=== PATIENT | female | born 1955 | race Caucasian/White ===

== ENCOUNTER 2020-07-06 23:07 | Inpatient (IN) | payer OTHER ==
[2020-07-06] MEDS ORDERED: ALBUTEROL NEBULIZED 2.5 MG/3 ML INHALATION PRN (23:20)
[2020-07-06] MEDS ORDERED: ACETAMINOPHEN TAB 500 MG TAB PO STA (23:20)
[2020-07-06] MEDS ORDERED: ACETAMINOPHEN TAB 325 MG TAB PO PRN (23:20)
[2020-07-06] MEDS ORDERED: PNEUMONIA PROTOCOL UTILIZED 1 EACH MISC PO PRN (23:20)
--- NOTE | 2020-07-06 23:27 | ED ---
Recheck HPI - General Stated Complaint: Fever Time Seen by Provider: 07/06/20 23:09 Source: RN notes reviewed, old records reviewed - History of Present Illness Initial Comments: this is a 64-year-old female DF for evaluation patient accepted in transfer for not feeling well 10 days of known coronavirus. Patient transferred to facility for this increasing shortness of breath and signs and symptoms of shortness of breath. No pain, persistent fevers. Patient does feel weak and does have some generalized body aches MD Complaint: other (known history of coronavirus) -: days(s) (10) Returns Today for: Called Because of Abnormal Lab/Test, persistent/worsening pain related to initial visit, other (increasing shortness of breath) Symptoms Since Prior Visit: fever Associated Symptoms: fever, chills, shortness of breath - Related Data Allergies Allergy/AdvReac Type Severity Reaction Status Date / Time Sulfa (Sulfonamide Allergy Rash/Hives Verified 07/06/20 23:37 Antibiotics) Review of Systems ROS Statement: Those systems with pertinent positive or pertinent negative responses have been documented in the HPI. ROS Other: All systems not noted in ROS Statement are negative. General Exam General appearance: alert, in no apparent distress Head exam: Present: atraumatic, normocephalic, normal inspection Eye exam: Present: normal appearance, PERRL, EOMI. Absent: scleral icterus, conjunctival injection, periorbital swelling ENT exam: Present: normal exam, mucous membranes dry Neck exam: Present: normal inspection. Absent: tenderness, meningismus, lymphadenopathy Respiratory exam: Present: normal lung sounds bilaterally, respiratory distress, accessory muscle use, decreased breath sounds, prolonged expiratory. Absent: wheezes, rales, rhonchi, stridor Cardiovascular Exam: Present: normal rhythm, tachycardia, normal heart sounds. Absent: systolic murmur, diastolic murmur, rubs, gallop, clicks GI/Abdominal exam: Present: soft, normal bowel sounds. Absent: distended, tenderness, guarding, rebound, rigid Extremities exam: Present: normal inspection, full ROM, normal capillary refill. Absent: tenderness, pedal edema, joint swelling, calf tenderness Back exam: Present: normal inspection Neurological exam: Present: alert, oriented X3, CN II-XII intact Psychiatric exam: Present: normal affect, normal mood Skin exam: Present: warm, dry, intact, normal color. Absent: rash Course Vital Signs 07/06/20 07/07/20 23:23 00:23 Temperature 101.6 F H 100.9 F H Pulse Rate 102 H 94 Respiratory 18 18 Rate Blood Pressure 125/71 O2 Sat by Pulse 94 L 94 L Oximetry - Reevaluation(s) Reevaluation #1: medical record is reviewed Spoke with transferring physician Transferring paperwork has been reviewed Medical Decision Making - Medical Decision Making 64 female presented with known positive coronavirus. Patient feels mildly short of breath but is no change complaints of chest pain or other issues she is still febrile improving. Patient be admitted for continued hemodynamic support - EKG Data -: EKG Interpreted by Me (EKG is sinus rhythm 97 MA 172 QRS 80 QTC 434) Disposition Clinical Impression: Fever, COVID-19 Disposition: ADMITTED IP TO THIS HOSP Condition: Fair Is patient prescribed a controlled substance at d/c from ED?: No
[2020-07-06] MEDS: SODIUM CHLORIDE 0.9% 1,000 ML IV SCH (23:57)
[2020-07-07 11:08] LABS: Basophils % (A) 0 %; Eosinophils % (A) 0 %; HCT 37.1 % (34.0-46.0); HGB 12.1 gm/dL (11.4-16.0); Lymphocytes % (A) 10 %; MCH 31.2 pg (25.0-35.0); MCHC 32.6 g/dL (31.0-37.0); MCV 95.6 fL (80.0-100.0); Mean Platelet Volume 7.8; Monocytes # (A) 0.3 k/uL (0-1.0); Monocytes % (A) 3 %; Neutrophils # (A) 8.4 k/uL (1.3-7.7); Neutrophils % (A) 86 %; Platelet Count 232 k/uL (150-450); RBC 3.88 m/uL (3.80-5.40); RDW 13.1 % (11.5-15.5); WBC 9.8 k/uL (3.8-10.6)
[2020-07-07] MEDS: ENOXAPARIN 60 MG/0.6 ML SYRINGE SQ SCH ×2 (11:31→20:44)
[2020-07-07] MEDS: FAMOTIDINE 20 MG TAB PO SCH ×2 (11:31→19:57)
[2020-07-07] MEDS: ZINC SULFATE 220 MG CAP PO SCH (11:32)
[2020-07-07 11:33] LABS: ALT 55 U/L (4-34); AST 56 U/L (14-36); African American GFR (CKD) >90 (>60 ml/min/1.73 sqM); Albumin 3.3 g/dL (3.5-5.0); Albumin/Globulin Ratio 1.2; Alkaline Phosphatase 68 U/L (38-126); Anion Gap 5 mmol/L; Blood Urea Nitrogen 10 mg/dL (7-17); Calcium 8.5 mg/dL (8.4-10.2); Carbon Dioxide 27 mmol/L (22-30); Chloride 103 mmol/L (98-107); Globulin 2.8 g/dL; Glucose 103 mg/dL (74-99); Non-African American GFR(CKD) >90 (>60 ml/min/1.73 sqM); Potassium 3.9 mmol/L (3.5-5.1); Sodium 135 mmol/L (137-145); Total Bilirubin 0.4 mg/dL (0.2-1.3); Total Protein 6.1 g/dL (6.3-8.2)
[2020-07-07] MEDS: SODIUM CHLORIDE 0.9% 1,000 ML IV SCH ×3 (11:35→23:52)
[2020-07-07 11:37] LABS: Glucose,Whole Blood 115 mg/dL (75-99)
[2020-07-07] MEDS: methylPREDNISolone SOD SUCCI 40 MG/ML 1 ML VIAL IV SCH ×3 (11:38→23:52)
[2020-07-07 11:52] LABS: C Reactive Protein 184.1 mg/L (<10.0)
[2020-07-07] MEDS: INSULIN ASPART (NovoLOG) 100 UNIT/ML VIAL SQ SCH ×2 (14:14→18:51)
[2020-07-07] MEDS: ESCITALOPRAM 10 MG TAB PO SCH (15:13)
[2020-07-07] MEDS: ASCORBIC ACID 500 MG TAB PO SCH (15:13)
[2020-07-07] MEDS: METOPROLOL TARTRATE 25 MG TAB PO SCH ×2 (15:13→19:57)
[2020-07-07 16:54] LABS: Glucose,Whole Blood 149 mg/dL (75-99)
[2020-07-07 21:09] LABS: Glucose,Whole Blood 182 mg/dL (75-99)
[2020-07-07] MEDS ORDERED: ALBUTEROL HFA INHALER INHALATION PRN (21:25)
--- NOTE | 2020-07-07 21:53 | P.HPIM ---
History of Present Illness H&P Date: 07/07/20 Chief Complaint: Cough History of presenting complaint: This is a pleasant 64-year-old patient of Dr. Poe. Chronic stable medical conditions include GERD, hypertension, anxiety. Patient's had a slight cough and shortness of breath progressive for last 10 days. Started off with chills and fever. No obvious headache. Smell and taste preserved. She'll also had some loose stools. Decreased appetite. Getting weak diet and rundown. 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 Review of systems: GEN.: Fever and chills EYES: None HEENT: None NECK: None RESPIRATORY: As above CARDIOVASCULAR: None GASTROINTESTINAL: As above GENITOURINARY: None MUSCULOSKELETAL: Muscle achiness LYMPHATICS: None HEMATOLOGICAL: None PSYCHIATRY: None NEUROLOGICAL: None Past medical history to include: GERD, hypertension, pancreatitis, anxiety Social history: Lives alone. No smoking or alcohol. Runs a daycare. Family history: Reviewed, noncontributory to presentation Physical examination: VITAL SIGNS: 101.6, 102, 18, 125/71, 94% on 3 L GENERAL: BMI 25.9, laying in bed, tired. EYES: Pupils equal. Conjunctiva normal. HEENT: External appearance of nose and ears normal, oral cavity grossly normal. NECK: JVD not raised; masses not palpable. HEART: First and second heart sounds are normal; no edema. LUNGS: Respiratory rate increased, decreased breath sounds some crackles. ABDOMEN: Soft, nontender, liver spleen not palpable, no masses palpable. PSYCH: [Alert and oriented x3; mood and affect anxious l. NEUROLOGICAL: Cranial nerves grossly intact; no facial asymmetry, power and sensation grossly intact. LYMPHATICS: No lymph nodes palpable in the axilla and neck INVESTIGATIONS, reviewed in the clinical context: White count 9.8 increased neutrophils potassium 3.9 creatinine 0.56, d-dimer 0.5 on CRP 184 EKG tracing personally reviewed by me-no sinus rhythm Assessment: -COVID 19 pneumonia -Acute hypoxic respiratory failure from pneumonia -GERD -Essential hypertension -Anxiety depression otherwise specified Plan: Patient be put on therapeutic dose of Lovenox, IV Solu-Medrol, zinc, Pepcid. Home medications resumed. Care was discussed with the patient question also. Also had Ventolin 2 puffs every 6. COVID 19 precautions. Past Medical History Past Medical History: GERD/Reflux, Hypertension Additional Past Medical History / Comment(s): pancreatitis History of Any Multi-Drug Resistant Organisms: None Reported Past Surgical History: Cholecystectomy Past Anesthesia/Blood Transfusion Reactions: No Reported Reaction Past Psychological History: Anxiety Smoking Status: Never smoker Past Alcohol Use History: None Reported Past Drug Use History: None Reported Medications and Allergies Home Medications Medication Instructions Recorded Confirmed Type Acetaminophen Tab [Tylenol Tab] 1,000 mg PO Q6HR PRN 07/07/20 07/07/20 History Ascorbic Acid [Vitamin C] 500 mg PO DAILY 07/07/20 07/07/20 History Cephalexin [Keflex] 500 mg PO TID 07/07/20 07/07/20 History Escitalopram [Lexapro] 10 mg PO DAILY 07/07/20 07/07/20 History Metoprolol Tartrate [Lopressor] 25 mg PO BID 07/07/20 07/07/20 History NIFEdipine [Procardia XL] 60 mg PO BID 07/07/20 07/07/20 History Potassium Chloride ER [K-Dur 10] 20 meq PO BID 07/07/20 07/07/20 History Vitamin B Complex 1 cap PO DAILY 07/07/20 07/07/20 History hydroCHLOROthiazide [Hydrodiuril] 12.5 mg PO DAILY 07/07/20 07/07/20 History Allergies Allergy/AdvReac Type Severity Reaction Status Date / Time Sulfa (Sulfonamide Allergy Rash/Hives Verified 07/07/20 07:49 Antibiotics) Physical Exam Vitals: Vital Signs Temp Pulse Pulse Resp BP BP Pulse Ox 07/07/20 07:00 97.6 F 101 H 20 135/75 91 L 07/07/20 01:08 98.4 F 89 18 111/65 95 07/07/20 01:02 18 07/07/20 00:23 100.9 F H 94 18 94 L 07/06/20 23:23 101.6 F H 102 H 18 125/71 94 L Intake and Output 07/06/20 07/07/20 07/07/20 22:59 06:59 14:59 Other: Voiding Method Toilet # Voids 1 Weight 66.224 kg Results CBC & Chem 7: 07/07/20 10:43 07/07/20 10:43 Thrombosis Risk Factor Assmnt - Choose All That Apply Any of the Below Risk Factors Present?: No Other Risk Factors: No Thrombosis Risk Factor Assessment Level: Very Low Risk
--- NOTE | 2020-07-07 22:33 | XR ---
EXAMINATION TYPE: XR chest 1V portable DATE OF EXAM: 07/07/2020 COMPARISON: 07/06/2020 HISTORY: Respiratory distress TECHNIQUE: FINDINGS: There is some coarse interstitial density in the lungs. This is seen mainly in the peripher y of both lung prado. Heart size is normal. There is no heart failure. There are no hilar masses. Th ere is no evidence of pleural effusion. Bony thorax is intact. IMPRESSION: Interstitial peripheral pulmonary infiltrates increased compared to exam yesterday. This is probably some acute and chronic interstitial pneumonia... No heart failure seen.
[2020-07-08] MEDS: ALBUTEROL HFA INHALER INHALATION SCH ×5 (00:57→20:55)
--- NOTE | 2020-07-08 01:35 | CONS ---
CONSULTATION DATE OF SERVICE: 07/07/2020 REASON FOR CONSULTATION: COVID-19 infection. HISTORY OF PRESENT ILLNESS: The patient is a 64-year-old female who started to have symptoms of fever, chills, some shortness of breath and cough about 10 days ago where the patient has been managing at home and the patient seemed to have some improvement initially. However, yesterday the patient starting having increasing shortness of breath, unable to take deep breath. Patient denies significant cough or sputum production. No nausea, no vomiting. No abdominal pain or diarrhea. The patient was evaluated at [facility] and subsequently has been transferred to this facility with concern for acute COVID-19 infection. On presentation to this hospital, the patient did have a fever of 101.6 degrees Fahrenheit. The patient was not tachycardic. The patient is currently 92% to 94% on 2 L nasal cannula. The patient did have a normal white count and no lymphopenia. She did have elevated liver enzymes as well as CRP. No chest x-ray done at this facility. The patient was started on Lovenox, Solu-Medrol and zinc. Infectious Disease was consulted for further management. The patient did mention she is feeling slightly better since has been transferred here and has been started on oxygen. REVIEW OF SYSTEMS: Positive points have been mentioned in HPI. Rest of systems negative. PAST MEDICAL HISTORY: Her past medical history significant for hypertension and gastroesophageal reflux disease. PAST SURGICAL HISTORY: Cholecystectomy. SOCIAL HISTORY: The patient denies smoking, drinking or drug use. PAST PSYCHOLOGICAL HISTORY: Positive for anxiety. FAMILY HISTORY: No pertinent findings noticed. ALLERGIES: Allergies to SULFA. MEDICATIONS: Medications include the patient is currently on Tylenol, Ventolin, vitamin C, Lovenox, Lexapro, Pepcid, NovoLog, Solu-Medrol, Lopressor, and fluid and zinc. PHYSICAL EXAMINATION: Blood pressure 114/70 with a pulse of 77, temperature 98.4. She is 91% on 2 L nasal cannula. General description is a middle-aged female up in the bed in no distress. RESPIRATORY SYSTEM: Unlabored breathing, clear to auscultation anteriorly. No wheeze or crackle. HEART: S1, S2. Regular rate and rhythm. ABDOMEN: Soft, no tenderness. EXTREMITIES: No edema of the feet. SKIN EXAMINATION: No rash or mass palpable. NEUROLOGICAL: Patient is awake, alert, oriented x3. Mood and affect normal. LABS: Hemoglobin is 12.1, white count 9.8, neutrophil count 8.4, BUN of 10, creatinine 0.56. Liver enzymes mildly elevated. CRP is 184. DIAGNOSTIC IMPRESSION: Patient admitted to the hospital with increasing shortness of breath in this patient who did have symptoms suggestive of COVID-19 infection. Apparently, she was tested positive in an outside facility with worsening symptoms for the last 24 hours. PLAN: 1. Patient is currently covered with Solu-Medrol, zinc, Lovenox, to continue. 2. We will repeat inflammatory markers and chest x-ray. 3. Droplet isolation and respiratory support. 4. Depending on her response in the next 24 hours, we may need to start the patient on remdesivir. MMODL / IJN: [id number] /
[2020-07-08 08:06] LABS: Glucose,Whole Blood 152 mg/dL (75-99)
[2020-07-08 08:10] LABS: Basophils % (A) 0 %; Eosinophils % (A) 0 %; HCT 35.7 % (34.0-46.0); HGB 11.6 gm/dL (11.4-16.0); Lymphocytes # (A) 1.2 k/uL (1.0-4.8); Lymphocytes % (A) 10 %; MCH 31.9 pg (25.0-35.0); MCHC 32.6 g/dL (31.0-37.0); Mean Platelet Volume 7.8; Monocytes # (A) 0.4 k/uL (0-1.0); Monocytes % (A) 3 %; Neutrophils # (A) 9.8 k/uL (1.3-7.7); Neutrophils % (A) 84 %; Platelet Count 273 k/uL (150-450); RBC 3.65 m/uL (3.80-5.40); RDW 12.9 % (11.5-15.5); WBC 11.6 k/uL (3.8-10.6)
[2020-07-08] MEDS: methylPREDNISolone SOD SUCCI 40 MG/ML 1 ML VIAL IV SCH ×2 (08:26→16:50)
[2020-07-08] MEDS: FAMOTIDINE 20 MG TAB PO SCH ×2 (08:27→20:53)
[2020-07-08] MEDS: ASCORBIC ACID 500 MG TAB PO SCH (08:27)
[2020-07-08] MEDS: ZINC SULFATE 220 MG CAP PO SCH (08:27)
[2020-07-08] MEDS: METOPROLOL TARTRATE 25 MG TAB PO SCH ×2 (08:27→20:53)
[2020-07-08] MEDS: ESCITALOPRAM 10 MG TAB PO SCH (08:27)
[2020-07-08] MEDS: INSULIN ASPART (NovoLOG) 100 UNIT/ML VIAL SQ SCH ×3 (08:28→17:21)
[2020-07-08 10:50] LABS: African American GFR (CKD) 111.6 (60.0-200.0); Albumin 3.5 g/dL (3.80-4.90); Albumin/Globulin Ratio 1.59 (1.60-3.17); Anion Gap 10.7 mmol/L (4.00-12.00); BUN/Creat Ratio 28.33 Ratio (12.00-20.00); C Reactive Protein 14.2 mg/dL (0.0-0.8); Calcium 8.5 mg/dL (8.7-10.3); Carbon Dioxide 21.3 mmol/L (21.6-31.8); Globulin 2.2 g/dL (1.6-3.3); Non-African American GFR(CKD) 96.3 (60.0-200.0); Potassium 3.9 mmol/L (3.5-5.5); Total Bilirubin 0.2 mg/dL (0.3-1.2); Total Protein 5.7 g/dL (6.2-8.2)
[2020-07-08] MEDS: ENOXAPARIN 60 MG/0.6 ML SYRINGE SQ SCH ×2 (10:56→20:53)
[2020-07-08 11:06] LABS: Glucose,Whole Blood 167 mg/dL (75-99)
[2020-07-08] MEDS ORDERED: REMDESIVIR (EUA) 200 MG in SODIUM CHLORIDE 0.9% 250 ML IVPB ONE (12:00)
[2020-07-08 16:25] LABS: Glucose,Whole Blood 183 mg/dL (75-99)
[2020-07-08] MEDS: SODIUM CHLORIDE 0.9% 1,000 ML IV SCH ×2 (16:49→21:14)
--- NOTE | 2020-07-08 20:33 | P.PN ---
Progress Note - Text Progress Note Date: 07/08/20 Chief Complaint: Cough History of presenting complaint: This is a pleasant 64-year-old patient of Dr. Poe. Chronic stable medical conditions include GERD, hypertension, anxiety. Patient's had a slight cough and shortness of breath progressive for last 10 days. Started off with chills and fever. No obvious headache. Smell and taste preserved. She'll also had some loose stools. Decreased appetite. Getting weak diet and rundown. 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 Admitted with COVID 19 pneumonia, acute hypoxic respiratory failure. Started on Lovenox, Solu-Medrol, Remdesivir oxygen supplementation. Today-laying in bed. Feeling slightly better. Slight cough. Bowels better. Oral intake about 75% of the meals. Review of systems: Was done for constitutional, cardiovascular, GI, pulmonary. relevant finding as above Active Medications Acetaminophen (Acetaminophen Tab 325 Mg Tab) 650 mg PO Q4HR PRN PRN Reason: Fever>101 Last Admin: 07/07/20 11:31 Dose: 650 mg Documented by: Albuterol Sulfate (Albuterol Hfa Inhaler) 2 puff INHALATION RT-QID [facility] Last Admin: 07/08/20 16:51 Dose: 2 puff Documented by: Ascorbic Acid (Ascorbic Acid 500 Mg Tab) 500 mg PO DAILY [facility] Last Admin: 07/08/20 08:27 Dose: 500 mg Documented by: Enoxaparin Sodium (Enoxaparin 60 Mg/0.6 Ml Syringe) 60 mg SQ Q12HR [facility] Last Admin: 07/08/20 10:56 Dose: 60 mg Documented by: Escitalopram Oxalate (Escitalopram 10 Mg Tab) 10 mg PO DAILY [facility] Last Admin: 07/08/20 08:27 Dose: 10 mg Documented by: Famotidine (Famotidine 20 Mg Tab) 20 mg PO BID [facility] Last Admin: 07/08/20 08:27 Dose: 20 mg Documented by: Sodium Chloride (Saline 0.9%) 1,000 mls @ 100 mls/hr IV .Q10H [facility] Last Admin: 07/08/20 16:49 Dose: Not Given Documented by: Remdesivir 100 mg/ Sodium (Chloride) 250 mls @ 250 mls/hr IVPB Q24H [facility] Stop: 07/12/20 12:59 Insulin Aspart (Insulin Aspart (Novolog) 100 Unit/Ml Vial) 0 unit SQ AC-TID [facility]; Protocol Last Admin: 07/08/20 17:21 Dose: 2 unit Documented by: Methylprednisolone Sodium Succinate (Methylprednisolone Sod Succi 40 Mg/Ml 1 Ml Vial) 40 mg IV Q8HR [facility] Last Admin: 07/08/20 16:50 Dose: 40 mg Documented by: Metoprolol Tartrate (Metoprolol Tartrate 25 Mg Tab) 25 mg PO BID [facility] Last Admin: 07/08/20 08:27 Dose: 25 mg Documented by: Nifedipine (Nifedipine Xl 60 Mg Tab.Er.24) 60 mg PO BID [facility] Last Admin: 07/08/20 08:27 Dose: 60 mg Documented by: Zinc Sulfate (Zinc Sulfate 220 Mg Cap) 220 mg PO DAILY [facility] Last Admin: 07/08/20 08:27 Dose: 220 mg Documented by: Physical examination: VITAL SIGNS: 97.9, 82, 20, 97 x 55, 91% on 8 L GENERAL: BMI 25.9, laying in bed, tired. PSYCH: [Alert and oriented x3; mood and affect less anxious. NEUROLOGICAL: Cranial nerves grossly intact, moving all 4 limbs Rest of the exam as per pulmonary and nursing INVESTIGATIONS, reviewed in the clinical context: White count 11.6 hemoglobin 11.6 potassium 3.9 pro-calcitonin 0.2 to CRP 14.2 Chest x-ray film personally reviewed by me [July 08]-peripheral infiltrates Previous testing White count 9.8 increased neutrophils potassium 3.9 creatinine 0.56, d-dimer 0.5 on CRP 184 EKG tracing personally reviewed by me-no sinus rhythm Assessment: -COVID 19 pneumonia -Acute hypoxic respiratory failure from pneumonia -GERD -Essential hypertension -Anxiety depression otherwise specified Plan: Patient be put on therapeutic dose of Lovenox, IV Solu-Medrol, zinc, Pepcid. Home medications resumed. Care was discussed with the patient question also. Also had Ventolin 2 puffs every 6. COVID 19 precautions.
--- NOTE | 2020-07-08 23:11 | PN ---
PROGRESS NOTE DATE OF SERVICE: 07/08/2020 REASON FOR FOLLOWUP: Acute COVID-19 pneumonia. INTERVAL HISTORY: The patient was seen on rounds this morning. She was noticed to have hypoxemia requiring high-flow nasal cannula oxygen that was up to 5 L. The patient did mention feeling slightly better, though. No chest pain. Minimal cough. No nausea, no vomiting. No abdominal pain or diarrhea. PHYSICAL EXAMINATION: Blood pressure 109/64 with a pulse of 93, temperature 97.4. She is 91% on 8 L nasal cannula. General description is a middle-aged female lying in bed in no distress. RESPIRATORY SYSTEM: Unlabored breathing with decreased intensity of breath sounds. No wheeze. HEART: S1, S2. Regular rate and rhythm. ABDOMEN: Soft. No tenderness. LABS: Hemoglobin 11.6, white count 11.6, BUN of 17, creatinine 0.6. DIAGNOSTIC IMPRESSION AND PLAN: Patient with acute COVID-19 pneumonia in this patient who did have worsening hypoxemia. Case was discussed in detail with the pharmacist. Patient was started on remdesivir; to continue in addition to the Solu-Medrol Lovenox and monitor her clinical course closely. MMODL / IJN: [id number] /
[2020-07-09] MEDS: methylPREDNISolone SOD SUCCI 40 MG/ML 1 ML VIAL IV SCH ×3 (00:32→17:45)
[2020-07-09 07:53] LABS: Glucose,Whole Blood 151 mg/dL (75-99)
[2020-07-09] MEDS: ALBUTEROL HFA INHALER INHALATION SCH ×4 (08:29→19:45)
[2020-07-09] MEDS: INSULIN ASPART (NovoLOG) 100 UNIT/ML VIAL SQ SCH ×3 (09:21→17:45)
[2020-07-09] MEDS: FAMOTIDINE 20 MG TAB PO SCH ×2 (09:22→22:36)
[2020-07-09] MEDS: ENOXAPARIN 60 MG/0.6 ML SYRINGE SQ SCH ×2 (09:22→22:37)
[2020-07-09] MEDS: ASCORBIC ACID 500 MG TAB PO SCH (09:22)
[2020-07-09] MEDS: METOPROLOL TARTRATE 25 MG TAB PO SCH ×2 (09:22→22:37)
[2020-07-09] MEDS: ZINC SULFATE 220 MG CAP PO SCH (09:22)
[2020-07-09] MEDS: ESCITALOPRAM 10 MG TAB PO SCH (09:22)
[2020-07-09 11:33] LABS: Glucose,Whole Blood 120 mg/dL (75-99)
[2020-07-09] MEDS: REMDESIVIR (EUA) 100 MG in SODIUM CHLORIDE 0.9% 250 ML IVPB SCH (12:25)
[2020-07-09 17:07] LABS: Glucose,Whole Blood 137 mg/dL (75-99)
--- NOTE | 2020-07-09 20:55 | P.PN ---
Progress Note - Text Progress Note Date: 07/09/20 Chief Complaint: Cough History of presenting complaint: This is a pleasant 64-year-old patient of Dr. Poe. Chronic stable medical conditions include GERD, hypertension, anxiety. Patient's had a slight cough and shortness of breath progressive for last 10 days. Started off with chills and fever. No obvious headache. Smell and taste preserved. She'll also had some loose stools. Decreased appetite. Getting weak diet and rundown. 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 Admitted with COVID 19 pneumonia, acute hypoxic respiratory failure. Started on Lovenox, Solu-Medrol, Remdesivir oxygen supplementation. Today-remains short of breath. Oral intake fair to good. Slight cough. No fever. Review of systems: Was done for constitutional, cardiovascular, GI, pulmonary. relevant finding as above Active Medications Acetaminophen (Acetaminophen Tab 325 Mg Tab) 650 mg PO Q4HR PRN PRN Reason: Fever>101 Last Admin: 07/07/20 11:31 Dose: 650 mg Documented by: Albuterol Sulfate (Albuterol Hfa Inhaler) 2 puff INHALATION RT-QID REPLACED BY [facility] Last Admin: 07/09/20 19:45 Dose: 2 puff Documented by: Ascorbic Acid (Ascorbic Acid 500 Mg Tab) 500 mg PO DAILY REPLACED BY [facility] Last Admin: 07/09/20 09:22 Dose: 500 mg Documented by: Enoxaparin Sodium (Enoxaparin 60 Mg/0.6 Ml Syringe) 60 mg SQ Q12HR REPLACED BY [facility] Last Admin: 07/09/20 09:22 Dose: 60 mg Documented by: Escitalopram Oxalate (Escitalopram 10 Mg Tab) 10 mg PO DAILY REPLACED BY [facility] Last Admin: 07/09/20 09:22 Dose: 10 mg Documented by: Famotidine (Famotidine 20 Mg Tab) 20 mg PO BID REPLACED BY [facility] Last Admin: 07/09/20 09:22 Dose: 20 mg Documented by: Sodium Chloride (Saline 0.9%) 1,000 mls @ 100 mls/hr IV .Q10H REPLACED BY [facility] Last Admin: 07/08/20 21:14 Dose: Not Given Documented by: Remdesivir 100 mg/ Sodium (Chloride) 250 mls @ 250 mls/hr IVPB Q24H REPLACED BY [facility] Stop: 07/12/20 12:59 Last Admin: 07/09/20 12:25 Dose: 250 mls/hr Documented by: Insulin Aspart (Insulin Aspart (Novolog) 100 Unit/Ml Vial) 0 unit SQ AC-TID REPLACED BY [facility]; Protocol Last Admin: 07/09/20 17:45 Dose: 1 unit Documented by: Methylprednisolone Sodium Succinate (Methylprednisolone Sod Succi 40 Mg/Ml 1 Ml Vial) 40 mg IV Q8HR REPLACED BY [facility] Last Admin: 07/09/20 17:45 Dose: 40 mg Documented by: Metoprolol Tartrate (Metoprolol Tartrate 25 Mg Tab) 25 mg PO BID REPLACED BY [facility] Last Admin: 07/09/20 09:22 Dose: 25 mg Documented by: Nifedipine (Nifedipine Xl 60 Mg Tab.Er.24) 60 mg PO BID REPLACED BY [facility] Last Admin: 07/09/20 09:22 Dose: 60 mg Documented by: Zinc Sulfate (Zinc Sulfate 220 Mg Cap) 220 mg PO DAILY REPLACED BY [facility] Last Admin: 07/09/20 09:22 Dose: 220 mg Documented by: Physical examination: VITAL SIGNS: 97.6, 75, 17, 102/62, 94% on 8 L GENERAL: Sitting up in bed, slightly short of breath PSYCH: [Alert and oriented x3; mood and affect less anxious. NEUROLOGICAL: Cranial nerves grossly intact, moving all 4 limbs Rest of the exam as per ID and nursing INVESTIGATIONS, reviewed in the clinical context: White count 11.6 hemoglobin 11.6 potassium 3.9 pro-calcitonin 0.2 to CRP 14.2 Chest x-ray film personally reviewed by me [July 08]-peripheral infiltrates Previous testing White count 9.8 increased neutrophils potassium 3.9 creatinine 0.56, d-dimer 0.5 on CRP 184 EKG tracing personally reviewed by me-no sinus rhythm Assessment: -COVID 19 pneumonia -Acute hypoxic respiratory failure from pneumonia-slow to respond -GERD -Essential hypertension -Anxiety depression otherwise specified Plan: Patient be put on therapeutic dose of Lovenox, IV Solu-Medrol, zinc, Pepcid. , Ventolin 2 puffs every 6. Discussed with the patient. Encourage incentive spirometry. Advised to sit up in a chair.
[2020-07-09] MEDS: SODIUM CHLORIDE 0.9% 1,000 ML IV SCH ×2 (23:44→23:45)
[2020-07-10] MEDS: methylPREDNISolone SOD SUCCI 40 MG/ML 1 ML VIAL IV SCH ×4 (00:48→23:47)
--- NOTE | 2020-07-10 06:04 | PN ---
PROGRESS NOTE DATE OF SERVICE: 07/09/2020 REASON FOR FOLLOWUP: Acute COVID-19 pneumonia. INTERVAL HISTORY: Patient is currently afebrile. The patient is breathing comfortably. Still requiring high-flow oxygen. Denies having any chest pain. Minimal cough. No nausea, no vomiting. No abdominal pain or diarrhea. PHYSICAL EXAMINATION: Blood pressure 106/57, pulse 81, temperature 97.5. She is 93% on nasal cannula. General description is a middle-aged female lying in bed in no distress. Respiratory system: Unlabored breathing, decreased breath sounds in the bases. No wheeze. Heart S1, S2. Regular rate and rhythm. Abdomen is soft with no tenderness. LABS: No new labs have been obtained today. DIAGNOSTIC IMPRESSION AND PLAN: Patient with acute COVID-19 pneumonia. This patient seemed to have shown some clinical improvement, however, still requiring high-flow oxygen. We will add incentive spirometry. Repeat chest x-ray and blood work in the morning. Continue supportive care. MMODL / IJN: [id number] /
[2020-07-10 07:11] LABS: Basophils % (A) 0 %; Eosinophils % (A) 0 %; HCT 35.3 % (34.0-46.0); HGB 11.7 gm/dL (11.4-16.0); Lymphocytes % (A) 7 %; MCH 32.2 pg (25.0-35.0); MCHC 33.1 g/dL (31.0-37.0); MCV 97.2 fL (80.0-100.0); Mean Platelet Volume 7.4; Monocytes # (A) 0.6 k/uL (0-1.0); Monocytes % (A) 4 %; Neutrophils # (A) 13.5 k/uL (1.3-7.7); Neutrophils % (A) 87 %; Platelet Count 402 k/uL (150-450); RBC 3.64 m/uL (3.80-5.40); RDW 12.9 % (11.5-15.5); WBC 15.5 k/uL (3.8-10.6)
[2020-07-10 07:17] LABS: Glucose,Whole Blood 128 mg/dL (75-99)
[2020-07-10] MEDS: INSULIN ASPART (NovoLOG) 100 UNIT/ML VIAL SQ SCH ×3 (07:18→17:07)
--- NOTE | 2020-07-10 07:46 | XR ---
EXAMINATION TYPE: XR chest 1V portable DATE OF EXAM: 07/10/2020 COMPARISON: 07/07/2020 HISTORY: Shortness of breath TECHNIQUE: Frontal and lateral views of the chest are obtained. FINDINGS: Scattered senescent parenchymal changes noted. Hyperinflation compatible with COPD. Bilateral peripheral infiltrates persist. Small effusions noted. Continued progress studies are advis ed. Heart size is stable. Mediastinal structures are stable and grossly unremarkable. No evidence for hilar prominence. Degenerative changes dorsal spine. IMPRESSION: 1. Bilateral peripheral infiltrates persist. Small effusions noted. Continued progress studies are ad vised.
[2020-07-10] MEDS: FAMOTIDINE 20 MG TAB PO SCH ×2 (08:34→21:17)
[2020-07-10] MEDS: ASCORBIC ACID 500 MG TAB PO SCH (08:34)
[2020-07-10] MEDS: SODIUM CHLORIDE 0.9% 1,000 ML IV SCH ×3 (08:35→23:48)
[2020-07-10] MEDS: ZINC SULFATE 220 MG CAP PO SCH (08:35)
[2020-07-10] MEDS: METOPROLOL TARTRATE 25 MG TAB PO SCH ×2 (08:35→21:17)
[2020-07-10] MEDS: ESCITALOPRAM 10 MG TAB PO SCH (08:35)
[2020-07-10] MEDS: ENOXAPARIN 60 MG/0.6 ML SYRINGE SQ SCH ×2 (08:35→21:17)
[2020-07-10] MEDS: ALBUTEROL HFA INHALER INHALATION SCH ×4 (08:50→20:07)
[2020-07-10 12:01] LABS: African American GFR (CKD) 111.6 (60.0-200.0); Albumin 3.3 g/dL (3.80-4.90); Albumin/Globulin Ratio 1.65 (1.60-3.17); Anion Gap 9.9 mmol/L (4.00-12.00); BUN/Creat Ratio 33.33 Ratio (12.00-20.00); C Reactive Protein 2.9 mg/dL (0.0-0.8); Calcium 8.3 mg/dL (8.7-10.3); Carbon Dioxide 22.1 mmol/L (21.6-31.8); Non-African American GFR(CKD) 96.3 (60.0-200.0); Potassium 3.8 mmol/L (3.5-5.5); Total Bilirubin 0.3 mg/dL (0.3-1.2); Total Protein 5.3 g/dL (6.2-8.2)
[2020-07-10 12:07] LABS: Glucose,Whole Blood 119 mg/dL (75-99)
[2020-07-10] MEDS: REMDESIVIR (EUA) 100 MG in SODIUM CHLORIDE 0.9% 250 ML IVPB SCH (12:54)
[2020-07-10 17:06] LABS: Glucose,Whole Blood 119 mg/dL (75-99)
[2020-07-10 20:01] LABS: Glucose,Whole Blood 118 mg/dL (75-99)
--- NOTE | 2020-07-10 21:03 | P.PN ---
Progress Note - Text Progress Note Date: 07/10/20 Chief Complaint: Cough History of presenting complaint: This is a pleasant 64-year-old patient of Dr. Poe. Chronic stable medical conditions include GERD, hypertension, anxiety. Patient's had a slight cough and shortness of breath progressive for last 10 days. Started off with chills and fever. No obvious headache. Smell and taste preserved. She'll also had some loose stools. Decreased appetite. Getting weak diet and rundown. 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 Admitted with COVID 19 pneumonia, acute hypoxic respiratory failure. Started on Lovenox, Solu-Medrol, Remdesivir oxygen supplementation. Today-sitting up in bed. Slightly less short of breath. Oral intake improving. A bit tired. Review of systems: Was done for constitutional, cardiovascular, GI, pulmonary. relevant finding as above Active Medications Acetaminophen (Acetaminophen Tab 325 Mg Tab) 650 mg PO Q4HR PRN PRN Reason: Fever>101 Last Admin: 07/07/20 11:31 Dose: 650 mg Documented by: Albuterol Sulfate (Albuterol Hfa Inhaler) 2 puff INHALATION RT-QID [facility] Last Admin: 07/10/20 20:07 Dose: 2 puff Documented by: Ascorbic Acid (Ascorbic Acid 500 Mg Tab) 500 mg PO DAILY [facility] Last Admin: 07/10/20 08:34 Dose: 500 mg Documented by: Enoxaparin Sodium (Enoxaparin 60 Mg/0.6 Ml Syringe) 60 mg SQ Q12HR [facility] Last Admin: 07/10/20 08:35 Dose: 60 mg Documented by: Escitalopram Oxalate (Escitalopram 10 Mg Tab) 10 mg PO DAILY [facility] Last Admin: 07/10/20 08:35 Dose: 10 mg Documented by: Famotidine (Famotidine 20 Mg Tab) 20 mg PO BID [facility] Last Admin: 07/10/20 08:34 Dose: 20 mg Documented by: Sodium Chloride (Saline 0.9%) 1,000 mls @ 100 mls/hr IV .Q10H [facility] Last Admin: 07/10/20 15:17 Dose: 100 mls/hr Documented by: Remdesivir 100 mg/ Sodium (Chloride) 250 mls @ 250 mls/hr IVPB Q24H [facility] Stop: 07/12/20 12:59 Last Admin: 07/10/20 12:54 Dose: 250 mls/hr Documented by: Insulin Aspart (Insulin Aspart (Novolog) 100 Unit/Ml Vial) 0 unit SQ AC-TID [facility]; Protocol Last Admin: 07/10/20 17:07 Dose: Not Given Documented by: Methylprednisolone Sodium Succinate (Methylprednisolone Sod Succi 40 Mg/Ml 1 Ml Vial) 40 mg IV Q8HR [facility] Last Admin: 07/10/20 15:17 Dose: 40 mg Documented by: Metoprolol Tartrate (Metoprolol Tartrate 25 Mg Tab) 25 mg PO BID [facility] Last Admin: 07/10/20 08:35 Dose: 25 mg Documented by: Nifedipine (Nifedipine Xl 60 Mg Tab.Er.24) 60 mg PO BID [facility] Last Admin: 07/10/20 08:35 Dose: 60 mg Documented by: Zinc Sulfate (Zinc Sulfate 220 Mg Cap) 220 mg PO DAILY [facility] Last Admin: 07/10/20 08:35 Dose: 220 mg Documented by: Physical examination: VITAL SIGNS: 97.4, 66, 20, 112/84, 91% on 8 L GENERAL: Sitting up in bed, slightly short of breath PSYCH: [Alert and oriented x3; mood and affect , some anxious. NEUROLOGICAL: Cranial nerves grossly intact, moving all 4 limbs Rest of the exam as per ID and nursing INVESTIGATIONS, reviewed in the clinical context: White count 15.5 hemoglobin 11.7 potassium 3.8 creatinine 0.6 CRP 2.9 Chest x-ray film personally reviewed by me [July 08]-peripheral infiltrates Previous testing White count 9.8 increased neutrophils potassium 3.9 creatinine 0.56, d-dimer 0.5 on CRP 184 EKG tracing personally reviewed by me-no sinus rhythm Assessment: -COVID 19 pneumonia -Acute hypoxic respiratory failure from pneumonia-on 8 L of oxygen-slow to respond -GERD -Essential hypertension -Anxiety depression otherwise specified Plan: Continue Lovenox, IV Solu-Medrol, zinc, Pepcid. , Ventolin 2 puffs every 6. Discussed with the patient. Follow closely.
--- NOTE | 2020-07-10 23:36 | PN ---
PROGRESS NOTE DATE OF SERVICE: 07/10/2020 REASON FOR FOLLOWUP: Acute COVID-19 pneumonia. INTERVAL HISTORY: Patient is currently afebrile. Patient is breathing comfortably. However, still requiring high-flow nasal oxygen. The patient denies having any chest pain. Cough but not bringing up any sputum. No nausea, no vomiting. No abdominal pain. No diarrhea. PHYSICAL EXAMINATION: Blood pressure 117/70, pulse of 72, temperature 98.2. She is 96% on 8 L nasal cannula. General description is a middle-aged female up in the in no distress. Respiratory system: Unlabored breathing with decreased breath sounds in the base, with no wheeze. Heart S1, S2. Regular rate and rhythm. Abdomen soft, no tenderness. LABS: Inflammatory marker has improved. Chest x-ray, no worsening. DIAGNOSTIC IMPRESSION AND PLAN: Patient with acute COVID-19 pneumonia in this patient currently being treated with Lovenox, Solu-Medrol and Remdesivir. Continue along with respiratory support. She has been instructed to increase use of her incentive spirometry. Slowly weaned off her oxygen. Continue supportive care. MMODL / IJN: [id number] /
[2020-07-11 07:19] LABS: Glucose,Whole Blood 109 mg/dL (75-99)
[2020-07-11] MEDS: INSULIN ASPART (NovoLOG) 100 UNIT/ML VIAL SQ SCH ×3 (07:31→17:46)
[2020-07-11] MEDS: ASCORBIC ACID 500 MG TAB PO SCH (08:17)
[2020-07-11] MEDS: FAMOTIDINE 20 MG TAB PO SCH ×2 (08:17→20:20)
[2020-07-11] MEDS: METOPROLOL TARTRATE 25 MG TAB PO SCH ×2 (08:17→20:20)
[2020-07-11] MEDS: ZINC SULFATE 220 MG CAP PO SCH (08:17)
[2020-07-11] MEDS: methylPREDNISolone SOD SUCCI 40 MG/ML 1 ML VIAL IV SCH ×3 (08:17→20:27)
[2020-07-11] MEDS: ENOXAPARIN 60 MG/0.6 ML SYRINGE SQ SCH ×2 (08:17→20:20)
[2020-07-11] MEDS: ESCITALOPRAM 10 MG TAB PO SCH (08:17)
[2020-07-11] MEDS: ALBUTEROL HFA INHALER INHALATION SCH ×4 (08:44→19:57)
[2020-07-11 11:58] LABS: Glucose,Whole Blood 114 mg/dL (75-99)
[2020-07-11] MEDS: REMDESIVIR (EUA) 100 MG in SODIUM CHLORIDE 0.9% 250 ML IVPB SCH (13:00)
[2020-07-11 17:00] LABS: Glucose,Whole Blood 122 mg/dL (75-99)
[2020-07-11] MEDS: SODIUM CHLORIDE 0.9% 1,000 ML IV SCH (18:58)
--- NOTE | 2020-07-11 20:12 | P.PN ---
Progress Note - Text Progress Note Date: 07/11/20 Chief Complaint: Cough History of presenting complaint: This is a pleasant 64-year-old patient of Dr. Poe. Chronic stable medical conditions include GERD, hypertension, anxiety. Patient's had a slight cough and shortness of breath progressive for last 10 days. Started off with chills and fever. No obvious headache. Smell and taste preserved. She'll also had some loose stools. Decreased appetite. Getting weak diet and rundown. 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 Admitted with COVID 19 pneumonia, acute hypoxic respiratory failure. Started on Lovenox, Solu-Medrol, Remdesivir oxygen supplementation. Today-up in chair. Gets short of breath with activity. Oral intake improving. No diarrhea. On nasal cannula. Review of systems: Was done for constitutional, cardiovascular, GI, pulmonary. relevant finding as above Active Medications Acetaminophen (Acetaminophen Tab 325 Mg Tab) 650 mg PO Q4HR PRN PRN Reason: Fever>101 Last Admin: 07/07/20 11:31 Dose: 650 mg Documented by: Albuterol Sulfate (Albuterol Hfa Inhaler) 2 puff INHALATION RT-QID [facility] Last Admin: 07/11/20 19:57 Dose: 2 puff Documented by: Ascorbic Acid (Ascorbic Acid 500 Mg Tab) 500 mg PO DAILY [facility] Last Admin: 07/11/20 08:17 Dose: 500 mg Documented by: Enoxaparin Sodium (Enoxaparin 60 Mg/0.6 Ml Syringe) 60 mg SQ Q12HR [facility] Last Admin: 07/11/20 08:17 Dose: 60 mg Documented by: Escitalopram Oxalate (Escitalopram 10 Mg Tab) 10 mg PO DAILY [facility] Last Admin: 07/11/20 08:17 Dose: 10 mg Documented by: Famotidine (Famotidine 20 Mg Tab) 20 mg PO BID [facility] Last Admin: 07/11/20 08:17 Dose: 20 mg Documented by: Sodium Chloride (Saline 0.9%) 1,000 mls @ 100 mls/hr IV .Q10H [facility] Last Admin: 07/11/20 18:58 Dose: Not Given Documented by: Remdesivir 100 mg/ Sodium (Chloride) 250 mls @ 250 mls/hr IVPB Q24H [facility] Stop: 07/12/20 12:59 Last Admin: 07/11/20 13:00 Dose: 250 mls/hr Documented by: Insulin Aspart (Insulin Aspart (Novolog) 100 Unit/Ml Vial) 0 unit SQ AC-TID [facility]; Protocol Last Admin: 07/11/20 17:46 Dose: Not Given Documented by: Methylprednisolone Sodium Succinate (Methylprednisolone Sod Succi 40 Mg/Ml 1 Ml Vial) 40 mg IV Q8HR [facility] Last Admin: 07/11/20 16:19 Dose: 40 mg Documented by: Metoprolol Tartrate (Metoprolol Tartrate 25 Mg Tab) 25 mg PO BID [facility] Last Admin: 07/11/20 08:17 Dose: 25 mg Documented by: Nifedipine (Nifedipine Xl 60 Mg Tab.Er.24) 60 mg PO BID [facility] Last Admin: 07/11/20 08:17 Dose: 60 mg Documented by: Zinc Sulfate (Zinc Sulfate 220 Mg Cap) 220 mg PO DAILY [facility] Last Admin: 07/11/20 08:17 Dose: 220 mg Documented by: Physical examination: VITAL SIGNS: 97.5, 69, 20, 119/67, 94% on 4 L GENERAL: Up in chair, breathing a bit better PSYCH: [Alert and oriented x3; mood and affect , some anxious. NEUROLOGICAL: Cranial nerves grossly intact, moving all 4 limbs Rest of the exam as per ID and nursing INVESTIGATIONS, reviewed in the clinical context: D-dimer 0.60, CRP 1.8 pro-calcitonin 0.07 White count 15.5 hemoglobin 11.7 potassium 3.8 creatinine 0.6 CRP 2.9 Chest x-ray film personally reviewed by me [July 08]-peripheral infiltrates Previous testing White count 9.8 increased neutrophils potassium 3.9 creatinine 0.56, d-dimer 0.5 on CRP 184 EKG tracing personally reviewed by me-no sinus rhythm Assessment: -COVID 19 pneumonia -Acute hypoxic respiratory failure from pneumonia-on 4 L of some improvement -GERD -Essential hypertension -Anxiety depression otherwise specified Plan: Continue Lovenox, IV Solu-Medrol, zinc, Pepcid. Remdesivir , Ventolin 2 puffs every 6. Discussed with the patient. Continue to use incentive spirometry. Walk in the room.
[2020-07-11 20:20] LABS: Glucose,Whole Blood 164 mg/dL (75-99)
--- NOTE | 2020-07-12 02:09 | PN ---
PROGRESS NOTE DATE OF SERVICE: 07/11/2020 REASON FOR FOLLOWUP: Acute COVID-19 pneumonia. INTERVAL HISTORY: The patient is currently afebrile. The patient is breathing comfortably. The patient's FiO2 is currently down to 4 L from 8 L yesterday. She is feeling better. Breathing comfortably. No chest pain. Minimal cough. No diarrhea. PHYSICAL EXAMINATION: Blood pressure 119/76, pulse of 70, temperature is 97.8. She is 96% on 4 L nasal cannula. General description is a middle-aged female up in the bed in no distress. RESPIRATORY SYSTEM: Unlabored breathing, decreased intensity of breath sounds. No wheeze. HEART: S1, S2. Regular rate and rhythm. ABDOMEN: Soft, no tenderness. LABS: CRP is 1.8. D-dimer 0.60. DIAGNOSTIC IMPRESSION AND PLAN: Patient with acute COVID-19 pneumonia in this patient seemed to have shown clinical improvement. The patient's FiO2 is currently coming down. We will keep the patient on Lovenox, Solu-Medrol, remdesivir, and zinc. She has been advised incentive spirometry and slowly wean off her oxygen. Continue supportive care. MMODL / IJN: [id number] /
[2020-07-12 07:08] LABS: Glucose,Whole Blood 108 mg/dL (75-99)
[2020-07-12] MEDS: INSULIN ASPART (NovoLOG) 100 UNIT/ML VIAL SQ SCH ×3 (07:12→16:57)
[2020-07-12] MEDS: FAMOTIDINE 20 MG TAB PO SCH ×2 (07:13→20:45)
[2020-07-12] MEDS: METOPROLOL TARTRATE 25 MG TAB PO SCH ×2 (07:14→20:45)
[2020-07-12] MEDS: ZINC SULFATE 220 MG CAP PO SCH (07:14)
[2020-07-12] MEDS: ASCORBIC ACID 500 MG TAB PO SCH (07:14)
[2020-07-12] MEDS: ESCITALOPRAM 10 MG TAB PO SCH (07:15)
[2020-07-12] MEDS: ENOXAPARIN 60 MG/0.6 ML SYRINGE SQ SCH ×2 (07:15→20:45)
[2020-07-12] MEDS: methylPREDNISolone SOD SUCCI 40 MG/ML 1 ML VIAL IV SCH ×2 (07:16→20:45)
[2020-07-12] MEDS: ALBUTEROL HFA INHALER INHALATION SCH ×4 (08:15→19:51)
[2020-07-12 10:35] VITALS: RESP 20
[2020-07-12 10:44] VITALS: BMI 25.8
[2020-07-12 11:24] LABS: Glucose,Whole Blood 121 mg/dL (75-99)
[2020-07-12] MEDS: REMDESIVIR (EUA) 100 MG in SODIUM CHLORIDE 0.9% 250 ML IVPB SCH (12:26)
[2020-07-12 16:45] LABS: Glucose,Whole Blood 135 mg/dL (75-99)
[2020-07-12 20:15] LABS: Glucose,Whole Blood 120 mg/dL (75-99)
--- NOTE | 2020-07-12 23:40 | P.PN ---
Progress Note - Text Progress Note Date: 07/12/20 Chief Complaint: Cough History of presenting complaint: This is a pleasant 64-year-old patient of Dr. Poe. Chronic stable medical conditions include GERD, hypertension, anxiety. Patient's had a slight cough and shortness of breath progressive for last 10 days. Started off with chills and fever. No obvious headache. Smell and taste preserved. She'll also had some loose stools. Decreased appetite. Getting weak diet and rundown. 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 Admitted with COVID 19 pneumonia, acute hypoxic respiratory failure. Started on Lovenox, Solu-Medrol, Remdesivir oxygen supplementation. Today-breathing continues to improve slowly. Appetite improving. Has been ambulating the room. On nasal cannula. Review of systems: Was done for constitutional, cardiovascular, GI, pulmonary. relevant finding as above Active Medications Acetaminophen (Acetaminophen Tab 325 Mg Tab) 650 mg PO Q4HR PRN PRN Reason: Fever>101 Last Admin: 07/07/20 11:31 Dose: 650 mg Documented by: Albuterol Sulfate (Albuterol Hfa Inhaler) 2 puff INHALATION RT-QID [facility] Last Admin: 07/12/20 19:51 Dose: 2 puff Documented by: Ascorbic Acid (Ascorbic Acid 500 Mg Tab) 500 mg PO DAILY [facility] Last Admin: 07/12/20 07:14 Dose: 500 mg Documented by: Enoxaparin Sodium (Enoxaparin 60 Mg/0.6 Ml Syringe) 60 mg SQ Q12HR [facility] Last Admin: 07/12/20 20:45 Dose: 60 mg Documented by: Escitalopram Oxalate (Escitalopram 10 Mg Tab) 10 mg PO DAILY [facility] Last Admin: 07/12/20 07:15 Dose: 10 mg Documented by: Famotidine (Famotidine 20 Mg Tab) 20 mg PO BID [facility] Last Admin: 07/12/20 20:45 Dose: 20 mg Documented by: Insulin Aspart (Insulin Aspart (Novolog) 100 Unit/Ml Vial) 0 unit SQ AC-TID [facility]; Protocol Last Admin: 07/12/20 16:57 Dose: 1 unit Documented by: Methylprednisolone Sodium Succinate (Methylprednisolone Sod Succi 40 Mg/Ml 1 Ml Vial) 40 mg IV Q12H [facility] Last Admin: 07/12/20 20:45 Dose: 40 mg Documented by: Metoprolol Tartrate (Metoprolol Tartrate 25 Mg Tab) 25 mg PO BID [facility] Last Admin: 07/12/20 20:45 Dose: 25 mg Documented by: Nifedipine (Nifedipine Xl 60 Mg Tab.Er.24) 60 mg PO BID [facility] Last Admin: 07/12/20 20:45 Dose: 60 mg Documented by: Zinc Sulfate (Zinc Sulfate 220 Mg Cap) 220 mg PO DAILY [facility] Last Admin: 07/12/20 07:14 Dose: 220 mg Documented by: Physical examination: VITAL SIGNS: 98.1, 73, 20, 119/67, 96% on 2 L GENERAL: Up in chair, breathing better PSYCH: [Alert and oriented x3; mood and affect , some anxious. NEUROLOGICAL: Cranial nerves grossly intact, moving all 4 limbs Rest of the exam as per ID and nursing INVESTIGATIONS, reviewed in the clinical context: D-dimer 0.60, CRP 1.8 pro-calcitonin 0.07 White count 15.5 hemoglobin 11.7 potassium 3.8 creatinine 0.6 CRP 2.9 Chest x-ray film personally reviewed by me [July 08]-peripheral infiltrates Previous testing White count 9.8 increased neutrophils potassium 3.9 creatinine 0.56, d-dimer 0.5 on CRP 184 EKG tracing personally reviewed by me-no sinus rhythm Assessment: -COVID 19 pneumonia -Acute hypoxic respiratory failure from pneumonia-on 2 L of some improvement -GERD -Essential hypertension -Anxiety depression otherwise specified Plan: Continue Lovenox, IV Solu-Medrol, zinc, Pepcid. Remdesivir-completed course , Ventolin 2 puffs every 6. Discussed with the patient. improving
--- NOTE | 2020-07-13 00:50 | PN ---
PROGRESS NOTE DATE OF SERVICE: 07/12/2020 REASON FOR FOLLOWUP: Acute COVID-19 pneumonia. INTERVAL HISTORY: The patient is currently afebrile. Patient is breathing more comfortably, still requiring 2 L nasal cannula. Denies having any chest pain. Minimal cough. No nausea, no vomiting. No abdominal pain or diarrhea. PHYSICAL EXAMINATION: Blood pressure 119/67 with a pulse of 73, temperature 98.1. She is 96% on 2 L nasal cannula. General description is a middle-aged female, lying in bed in no distress. RESPIRATORY SYSTEM: Unlabored breathing, decreased breath sounds at the bases. No wheeze. HEART: S1, S2. Regular rate and rhythm. ABDOMEN: Soft, no tenderness. LABS: No new labs have been obtained today. DIAGNOSTIC IMPRESSION AND PLAN: Patient with acute COVID-19 pneumonia in this patient who has shown overall clinical improvement. She has completed a 5-day course of remdesivir. Currently on Solu-Medrol, zinc and Lovenox to continue. Try to wean her off the oxygen. Continue with supportive care. MMODL / IJN: [id number] /
[2020-07-13 07:03] LABS: Glucose,Whole Blood 100 mg/dL (75-99)
[2020-07-13] MEDS: INSULIN ASPART (NovoLOG) 100 UNIT/ML VIAL SQ SCH ×2 (08:28→11:17)
[2020-07-13] MEDS: ZINC SULFATE 220 MG CAP PO SCH (08:31)
[2020-07-13] MEDS: methylPREDNISolone SOD SUCCI 40 MG/ML 1 ML VIAL IV SCH (08:32)
[2020-07-13] MEDS: ESCITALOPRAM 10 MG TAB PO SCH (08:32)
[2020-07-13] MEDS: METOPROLOL TARTRATE 25 MG TAB PO SCH (08:32)
[2020-07-13] MEDS: FAMOTIDINE 20 MG TAB PO SCH (08:32)
[2020-07-13] MEDS: ASCORBIC ACID 500 MG TAB PO SCH (08:32)
[2020-07-13] MEDS: ENOXAPARIN 60 MG/0.6 ML SYRINGE SQ SCH (08:32)
[2020-07-13] MEDS: ALBUTEROL HFA INHALER INHALATION SCH ×2 (09:00→13:04)
[2020-07-13 10:13] VITALS: BP 110/73; PULSE 64; TEMP 98.1
[2020-07-13 11:12] LABS: Glucose,Whole Blood 100 mg/dL (75-99)
--- NOTE | 2020-07-13 21:24 | P.DS ---
Providers Date of admission: 07/06/20 23:27 Expected date of discharge: 07/13/20 Attending physician: Romero Adams Consults: 07/06/20 23:20 Consult Physician Routine Consulting Provider: Portillo Ng Consult Reason/Comments: covid Do you want consulting provider notified?: Yes Primary care physician: [facility] Course: Chief Complaint: Cough History of presenting complaint: This is a pleasant 64-year-old patient of Dr. Poe. Chronic stable medical conditions include GERD, hypertension, anxiety. Patient's had a slight cough and shortness of breath progressive for last 10 days. Started off with chills and fever. No obvious headache. Smell and taste preserved. She'll also had some loose stools. Decreased appetite. Getting weak diet and rundown. 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 Admitted with COVID 19 pneumonia, acute hypoxic respiratory failure. Started on Lovenox, Solu-Medrol, Remdesivir oxygen supplementation. Continue to improve gradually. Today-tolerating diet. Minimal respiratory symptoms. Slightly tired. Oral intake code. Discussed with patient. Questions answered. Consultation: Dr. Ng from [place] Physical examination: VITAL SIGNS: 98.1, 64, 20, 110/73, 95% room air GENERAL: Sitting up, comfortable PSYCH: [Alert and oriented x3; mood and affect , normal. INVESTIGATIONS, reviewed in the clinical context: D-dimer 0.60, CRP 1.8 pro-calcitonin 0.07 White count 15.5 hemoglobin 11.7 potassium 3.8 creatinine 0.6 CRP 2.9 Chest x-ray film personally reviewed by me [July 08]-peripheral infiltrates Previous testing White count 9.8 increased neutrophils potassium 3.9 creatinine 0.56, d-dimer 0.5 on CRP 184 EKG tracing personally reviewed by me-no sinus rhythm Assessment: -COVID 19 pneumonia -Acute hypoxic respiratory failure from pneumonia -recovered -GERD -Essential hypertension -Anxiety depression otherwise specified Disposition: Home Patient Condition at Discharge: Stable Plan - Discharge Summary Discharge Rx Participant: No New Discharge Prescriptions: New Zinc Sulfate [Orazinc] 220 mg PO DAILY #30 cap Famotidine [Pepcid] 20 mg PO BID #60 tab predniSONE 10 mg PO DAILY #30 tab Rivaroxaban [Xarelto] 2.5 mg PO HS #21 tablet Continue Ascorbic Acid [Vitamin C] 500 mg PO DAILY NIFEdipine [Procardia XL] 60 mg PO BID Metoprolol Tartrate [Lopressor] 25 mg PO BID Escitalopram [Lexapro] 10 mg PO DAILY Acetaminophen Tab [Tylenol] 1,000 mg PO Q6HR PRN PRN Reason: Pain Vitamin B Complex 1 cap PO DAILY Discontinued Potassium Chloride ER [K-Dur 10] 20 meq PO BID Cephalexin [Keflex] 500 mg PO TID No Action hydroCHLOROthiazide [Hydrodiuril] 12.5 mg PO DAILY Discharge Medication List Acetaminophen Tab [Tylenol] 1,000 mg PO Q6HR PRN 07/07/20 [History] Ascorbic Acid [Vitamin C] 500 mg PO DAILY 07/07/20 [History] Escitalopram [Lexapro] 10 mg PO DAILY 07/07/20 [History] Metoprolol Tartrate [Lopressor] 25 mg PO BID 07/07/20 [History] NIFEdipine [Procardia XL] 60 mg PO BID 07/07/20 [History] Vitamin B Complex 1 cap PO DAILY 07/07/20 [History] hydroCHLOROthiazide [Hydrodiuril] 12.5 mg PO DAILY 07/07/20 [History] Famotidine [Pepcid] 20 mg PO BID #60 tab 07/13/20 [Rx] Rivaroxaban [Xarelto] 2.5 mg PO HS #21 tablet 07/13/20 [Rx] Zinc Sulfate [Orazinc] 220 mg PO DAILY #30 cap 07/13/20 [Rx] predniSONE 10 mg PO DAILY #30 tab 07/13/20 [Rx] Follow up Appointment(s)/Referral(s): Vivek Golden DO [Primary Care Provider] - 07/22/20 10:00 am Patient Instructions/Handouts: Viral Pneumonia (DC) Activity/Diet/Wound Care/Special Instructions: covid 19 instructions for dc Discharge Disposition: HOME SELF-CARE
== END 2020-07-13 13:50 | disposition home or self-care (01) | DRG 177 ==
LOC: EC 23:07 → 4SSUR 23:27
PROVIDERS: ADMIT Hospitalist; ATTEND Hospitalist
DX: U07.1 COVID-19 (principal); J12.89 Other viral pneumonia; J96.01 Acute respiratory failure with hypoxia; I10 Essential (primary) hypertension; F41.8 Other specified anxiety disorders; K21.9 Gastro-esophageal reflux disease without esophagitis; Z60.2 Problems related to living alone; Z88.2 Allergy status to sulfonamides; Z79.899 Other long term (current) drug therapy; Z90.49 Acquired absence of other specified parts of digestive tract
CPT/HCPCS: 71045; 80053; 84145; 85025; 85379; 86140; 93005; 94640; 94760; 99284